=== PATIENT | male | born 1990 | race African-American/Black ===

== ENCOUNTER 2019-07-06 21:51 | Emergency (ER) | payer SELFPAY ==
--- NOTE | 2019-07-06 22:19 | ER Document Report ---
ED Medical Screen (RME) - General Chief Complaint: Toothache Stated Complaint: TOOTH ACHE Time Seen by Provider: 07/06/19 22:18 Mode of Arrival: Ambulatory Information source: Patient Notes: Patient presents emergency department with dental pain for the past 2 days. Patient speaking a clear voice. I have greeted and performed a rapid initial assessment of this patient. A comprehensive ED assessment and evaluation of the patient, analysis of test results and completion of the medical decision making process will be conducted by additional ED providers. Dictation of this chart was performed using voice recognition software; therefore, there may be some unintended grammatical errors. TRAVEL OUTSIDE OF THE [place] IN LAST 30 DAYS: No - Related Data Allergies/Adverse Reactions: No Known Allergies Allergy (Verified 09/01/14 18:36) Past Medical History Renal/ Medical History: Reports: Hx Kidney Stones Psychiatric Medical History: Reports: Hx Bipolar Disorder, Hx Depression Infectious Medical History: Denies: Hx MRSA - Immunizations Hx Diphtheria, Pertussis, Tetanus Vaccination: Yes - UNKNOWN Physical Exam - Vital signs Vitals: Temp Pulse Resp BP Pulse Ox 98.4 F 76 18 135/93 H 99 07/06/19 22:08 07/06/19 22:08 07/06/19 22:08 07/06/19 22:08 07/06/19 22:08 Course - Vital Signs Vital signs: Temp Pulse Resp BP Pulse Ox 98.4 F 76 18 135/93 H 99 07/06/19 22:08 07/06/19 22:08 07/06/19 22:08 07/06/19 22:08 07/06/19 22:08
[2019-07-07] MEDS ORDERED: PENICILLIN V POTASSIUM 500 MG TABLET PO ONE (02:27)
[2019-07-07] MEDS ORDERED: IBUPROFEN 800 MG TABLET PO ONE (02:27)
--- NOTE | 2019-07-07 02:31 | ER Document Report ---
HPI - HPI Patient complains to provider of: Tooth pain Time Seen by Provider: 07/06/19 22:18 Pain Level: 5 Context: Patient is an otherwise healthy 28-year-old male presents to the emergency department for left upper tooth pain for the last 2 days. Patient states he is unsure of the last time he saw a dentist. Patient's denying history of wisdom tooth extraction. Patient denies taking any medication for the pain. Patient denies any allergies, daily medications, medical problems. - REPRODUCTIVE Reproductive: DENIES: : Past Medical History - General Information source: Patient - Social History Smoking Status: Current Every Day Smoker Chew tobacco use (# tins/day): No Frequency of alcohol use: None Drug Abuse: None Family History: Reviewed & Not Pertinent Patient has suicidal ideation: No Patient has homicidal ideation: No Renal/ Medical History: Reports: Hx Kidney Stones. Denies: Hx Peritoneal Dialysis Psychiatric Medical History: Reports: Hx Bipolar Disorder, Hx Depression Infectious Medical History: Denies: Hx MRSA - Immunizations Hx Diphtheria, Pertussis, Tetanus Vaccination: Yes - UNKNOWN Vertical Provider Document - CONSTITUTIONAL Agree With Documented VS: Yes Notes: GENERAL: Alert, interacts well. No acute distress. HEAD: Normocephalic, atraumatic. EYES: Pupils equal, round, and reactive to light. Extraocular movements intact. ENT: Oral mucosa moist, tongue midline. Tooth in question appears to be #16. erythema noted to the gumline no areas of fluctuance or induration noted. No trismus noted. NECK: Full range of motion. Supple. Trachea midline. No lymphadenopathy appreciated LUNGS: Clear to auscultation bilaterally, no wheezes, rales, or rhonchi. No respiratory distress. HEART: Regular rate and rhythm. No murmur ABDOMEN: Soft, non-tender. Non-distended. Bowel sounds present in all 4 quadrants. EXTREMITIES: Moves all 4 extremities spontaneously. No edema, normal radial and dorsalis pedis pulses bilaterally. No cyanosis. BACK: no cervical, thoracic, lumbar midline tenderness. No saddle anesthesia, normal distal neurovascular exam. NEUROLOGICAL: Alert and oriented x3. Normal speech. cranial nerves II through XII grossly intact PSYCH: Normal affect, normal mood. SKIN: Warm, dry, normal turgor. No rashes or lesions noted. - INFECTION CONTROL TRAVEL OUTSIDE OF THE [place] IN LAST 30 DAYS: No Course - Re-evaluation Re-evalutation: 07/07/19 02:29 Discussed use of antibiotics and following up at dental clinic. At this time will discharge with return precautions and follow-up recommendations. Verbal discharge instructions given a the bedside and opportunity for questions given. Medication warnings reviewed. Patient is in agreement with this plan and has verbalized understanding of return precautions and the need for primary care follow-up in the next 24-72 hours. This medical record was dictated with voice recognizing software. There may be grammatical, syntax errors that are unintended. - Vital Signs Vital signs: Temp Pulse Resp BP Pulse Ox 98.4 F 76 18 135/93 H 99 07/06/19 22:08 07/06/19 22:08 07/06/19 22:08 07/06/19 22:08 07/06/19 22:08 Discharge - Discharge Clinical Impression: Tooth pain Condition: Stable Disposition: HOME, SELF-CARE Instructions: Toothache ([facility]), Penicillin V K ([facility]), [facility] Additional Instructions: As we discussed you have been seen and treated in the emergency department for your tooth pain. Please make sure taking antibiotics as prescribed. Please also make sure you follow-up at the dental clinic provided in this packet. Please return to the emergency room for any further concerns. Prescriptions: Penicillin V Potassium [Penicillin Vk 500 mg Tablet] 500 mg PO BID #20 tablet Forms: Return to Work Referrals: [facility] [Provider Group] - Follow up as needed
[2019-07-07 02:50] VITALS: BP 149/101
== END 2019-07-07 02:50 | disposition home or self-care (01) ==
LOC: ER 21:51
DX: K08.89 Other specified disorders of teeth and supporting structures (principal); F17.200 Nicotine dependence, unspecified, uncomplicated